=== PATIENT | male | born 2000 | race Caucasian/White ===

== ENCOUNTER 2020-08-23 23:47 | Emergency (ER) | payer BC ==
[~2020-08-23] VITALS: Ht 180.3 cm; Wt 79.5 kg
[2020-08-23 23:51] VITALS: TEMP 98.8
[2020-08-24 01:57] VITALS: BP 136/78; PULSE 86
== END 2020-08-24 01:58 | disposition home or self-care (01) ==
LOC: COL.ER 23:47
DX: S00.93XA Contusion of unspecified part of head, initial encounter (principal); K03.81 Cracked tooth; W01.198A Fall on same level from slipping, tripping and stumbling with subsequent striking against other object, initial encounter; Y92.009 Unspecified place in unspecified non-institutional (private) residence as the place of occurrence of the external cause